=== PATIENT | female | born 1975 | race Caucasian/White ===

== ENCOUNTER 2017-04-01 11:47 | Outpatient (CLI) | payer OTHER ==
--- NOTE | 2017-04-01 17:24 | Diagnostic Imaging Report ---
[facility] [id number] [facility].[address] 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 No abnormal dilation of the large or small bowel. Air and stool throughout the large bowel. No suspicious calcification projecting over the renal fossa or the lower pelvic region. Osseous structures are appropriate for age. Impression: No ileus or obstruction. No suspicious calcifications by plain film sensitivity. Electronically signed on Apr 01, 2017 12:48:47 PM CDT by: Natanael TIERNEY
== END 2017-04-01 12:40 ==
LOC: RAD 11:47
PROVIDERS: ATTEND Nurse Practitioner Family
DX: K59.00 Constipation, unspecified (principal); R10.84 Generalized abdominal pain
CPT/HCPCS: 74020